=== PATIENT | male | born 2005 | race African-American/Black ===

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

== ENCOUNTER 2024-01-05 23:29 | Emergency (ER) | payer OTHER ==
[~2024-01-05] VITALS: Ht 167.6 cm; Wt 93.0 kg
[~2024-01-05 23:29] MED LIST: DOXY100C82 PO; ONDA-282 PO
[2024-01-05] MEDS: ACETAMINOPHEN 500 MG TAB PO ONE (23:57)
[2024-01-06] MEDS: KETOROLAC 60MG 2ML VIAL IM ONE (00:52)
[2024-01-06 01:46] VITALS: BP 108/56; TEMP 99; O2SAT 100
== END 2024-01-06 01:48 | disposition home or self-care (01) ==
LOC: M ED 23:29
DX: B34.8 Other viral infections of unspecified site (principal); Z11.52 Encounter for screening for COVID-19
CPT/HCPCS: 71046; 87486; 87581; 87633; 87798; 87880; 96372; 99283; J1885

== ENCOUNTER 2024-05-13 14:44 | Inpatient (IN) | payer OTHER ==
[~2024-05-13 14:44] MED LIST changes: +DOXY-442 PO; -DOXY100C82 PO
[2024-05-13 15:34] LABS: HEMATOCRIT 40.2 % (42.0-52.0); HEMOGLOBIN 12.7 g/dl (13.5-17.5); MEAN CORPUSCULAR HEMOGLOBIN 23.3 pg (27.0-33.0); MEAN CORPUSCULAR HGB CONC 31.6 g/dl (32.0-36.5); MEAN CORPUSCULAR VOLUME 73.9 fl (80.0-96.0); PLATELET COUNT, AUTOMATED 286 10^3/uL (150-450); RED BLOOD COUNT 5.44 10^6/uL (4.30-6.10); WHITE BLOOD COUNT 6.4 10^3/uL (4.0-10.0)
[2024-05-13 16:00] LABS: AMPHETAMINES LEVEL URINE NEGATIVE (NEGATIVE)
[2024-05-13 16:01] LABS: BARBITURATES URINE NEGATIVE (NEGATIVE); BENZODIAZEPINES URINE NEGATIVE (NEGATIVE); CANNABINOIDS URINE NEGATIVE (NEGATIVE); COCAINE METABOLITE URINE NEGATIVE (NEGATIVE); ETHYL ALCOHOL (ETHANOL) 0.004 % (0.000-0.010); METHADONE URINE NEGATIVE (NEGATIVE); OPIATES URINE NEGATIVE (NEGATIVE); PHENCYCLIDINE URINE NEGATIVE (NEGATIVE)
[2024-05-13 16:03] LABS: ALBUMIN 4.2 G/DL (3.2-5.2); ALKALINE PHOSPHATASE 86 U/L (40-129); ALT/SGPT 29 U/L (7.0-40); AST/SGOT 32 U/L (<34); BILIRUBIN,DIRECT < 0.1 MG/DL (<0.4); BILIRUBIN,TOTAL 0.3 MG/DL (0.3-1.2); BLOOD UREA NITROGEN 17 MG/DL (9-23); CALCIUM LEVEL 9.7 MG/DL (8.5-10.1); CARBON DIOXIDE LEVEL 30 MMOL/L (20-31); CHLORIDE LEVEL 104 MMOL/L (98-107); CREATININE FOR GFR 1.06 MG/DL (0.70-1.30); GLOMERULAR FILTRATION RATE > 60.0 (>60); GLUCOSE, FASTING 86 MG/DL (60-100); POTASSIUM SERUM 4.5 MMOL/L (3.5-5.1); SALICYLATE LEVEL < 3.0 MG/DL (<30); SODIUM LEVEL 140 MMOL/L (136-145); TOTAL PROTEIN 8.2 G/DL (5.7-8.2)
[2024-05-13 16:07] LABS: THYROID STIMULATING HORMONE 1.827 uIU/ML (0.55-4.78)
[2024-05-13] MEDS ORDERED: HOME MED LIST COMPLETE! XX SCH (16:25)
[2024-05-13] MEDS ORDERED: MELO15TA28 PO (16:25)
[2024-05-13] MEDS ORDERED: TIZA10TA PO (16:25)
[2024-05-13] MEDS ORDERED: ACETAMINOPHEN 325 MG TAB PO PRN (17:45)
[2024-05-13] MEDS ORDERED: IBUPROFEN 400MG TAB PO PRN (17:45)
[2024-05-13] MEDS ORDERED: diphenhydrAMINE 25MG CAP PO PRN (17:45)
[2024-05-13] MEDS ORDERED: MAALOX 30 ML SUSP *UDC PO PRN (17:45)
[2024-05-13 20:06] VITALS: BP 164/82; TEMP 97.4; O2SAT 100
[2024-05-14 06:28] VITALS: BP 129/63; TEMP 97.5; O2SAT 99
[2024-05-14] MEDS: PARoxetine 10MG TABLET PO SCH (09:36)
[2024-05-14] MEDS ORDERED: LORazepam 2 MG TAB PO PRN (09:55)
[2024-05-14 10:02] VITALS: BP 129/63
[2024-05-14 10:53] LABS: IRON (FE) 129 UG/DL (65-175); PERCENT SATURATION 39.9 % (19.7-50.0); TOTAL IRON BINDING CAPACITY 323 UG/DL (250-425)
[2024-05-14] MEDS: FOLIC ACID 1MG TAB PO SCH (10:54)
[2024-05-14] MEDS: MELOXICAM (MOBIC) 7.5 MG TAB PO SCH (10:55)
[2024-05-14] MEDS: THIAMINE 100 MG TAB PO SCH (10:55)
[2024-05-14] MEDS: MULTIVITAMINS/MINERALS THERAP 1 TAB PO SCH (10:55)
[2024-05-14 10:56] LABS: FERRITIN 94.3 NG/ML (10.5-307.3); VITAMIN B12 LEVEL 584 PG/ML (211-911)
[2024-05-14 11:01] LABS: FOLATE > 24.00 NG/ML (>5.4)
[2024-05-14] MEDS: BACITRACIN OINTMENT 30GM TUBE TOP SCH (11:05)
[2024-05-14 17:10] VITALS: BP 122/66
[2024-05-14] MEDS: tiZANidine 4 MG TAB PO SCH (20:12)
[2024-05-14] MEDS: traZODone 50 MG TAB PO PRN (20:12)
[2024-05-14 22:00] VITALS: BP 142/68
[2024-05-15 06:00] VITALS: BP 147/80
[2024-05-15 06:23] VITALS: BP 147/80; TEMP 97.8; O2SAT 98
[2024-05-15] MEDS: MOM 30ML SUSPENSION UDC PO PRN (06:55)
[2024-05-15 14:00] VITALS: BP 156/82
[2024-05-15 14:49] VITALS: BP 156/82; TEMP 97.8; O2SAT 98
[2024-05-16 06:29] VITALS: BP 134/100; TEMP 96.9; O2SAT 98
[2024-05-16 07:53] VITALS: BP 149/79
[2024-05-16] MEDS ORDERED: PARO5TAB PO (08:35)
== END 2024-05-16 10:18 | disposition home or self-care (01) | DRG 880 ==
LOC: EDBD 14:44 → EDSEX 14:44 → M ED 14:44 → M ED INP 17:44 → M PSY 20:01
PROVIDERS: ADMIT Psychiatry & Neurology Neurology; ATTEND Psychiatry & Neurology Neurology
DX: F41.1 Generalized anxiety disorder (principal); R45.851 Suicidal ideations; F90.9 Attention-deficit hyperactivity disorder, unspecified type; D50.9 Iron deficiency anemia, unspecified; F10.20 Alcohol dependence, uncomplicated; M54.12 Radiculopathy, cervical region; F17.290 Nicotine dependence, other tobacco product, uncomplicated; Z91.82 Personal history of military deployment; Z63.0 Problems in relationship with spouse or partner; Z56.6 Other physical and mental strain related to work; Z91.51 Personal history of suicidal behavior; Z91.52 Personal history of nonsuicidal self-harm; Z62.810 Personal history of physical and sexual abuse in childhood; Z79.899 Other long term (current) drug therapy; Z90.49 Acquired absence of other specified parts of digestive tract